=== PATIENT | male | born 1945 ===

== ENCOUNTER 2019-03-07 16:16 | Observation (INO) | payer BC, MEDICARE ==
[2019-03-07 17:07] LABS: Glucose,Whole Blood 169 mg/dL (75-99)
[2019-03-07] MEDS: INSULIN ASPART (NovoLOG) 100 UNIT/ML VIAL SQ SCH ×2 (18:02→21:17)
[2019-03-07] MEDS: GABAPENTIN 100 MG CAP PO SCH ×2 (18:02→22:41)
[2019-03-07 18:24] LABS: Basophils # (A) 0.2 k/uL (0-0.2); Basophils % (A) 2 %; Eosinophils % (A) 0 %; HCT 46.2 % (39.0-53.0); HGB 14.4 gm/dL (13.0-17.5); Lymphocytes # (A) 1.2 k/uL (1.0-4.8); Lymphocytes % (A) 16 %; MCH 30.2 pg (25.0-35.0); MCHC 31.1 g/dL (31.0-37.0); MCV 96.9 fL (80.0-100.0); Monocytes # (A) 0.5 k/uL (0-1.0); Monocytes % (A) 7 %; Neutrophils # (A) 5.5 k/uL (1.3-7.7); Neutrophils % (A) 73 %; Platelet Count 274 k/uL (150-450); RBC 4.76 m/uL (4.30-5.90); RDW 14.4 % (11.5-15.5); WBC 7.5 k/uL (3.8-10.6)
[2019-03-07 18:39] LABS: Albumin 4.4 g/dL (3.5-5.0); Calcium 9.4 mg/dL (8.4-10.2); Total Bilirubin 0.8 mg/dL (0.2-1.3); Total Protein 7.7 g/dL (6.3-8.2)
[2019-03-07 19:24] LABS: Erythrocyte Sedimentation Rate 15 mm/hr (0-15)
[2019-03-07 20:43] LABS: Glucose,Whole Blood 130 mg/dL (75-99)
[2019-03-07] MEDS: AMMONIUM LACTATE 12% LOTION 225 GM BTL TOPICAL SCH (22:05)
[2019-03-07] MEDS: POTASSIUM CHLORIDE ER 20 MEQ TAB.ER PO SCH (22:42)
[2019-03-07] MEDS: HYDROcodone/APAP 7.5-325MG 1 EACH TAB PO SCH (22:42)
[2019-03-07] MEDS: LATANOPROST 0.005% OPHTH DROPS 2.5 ML BTL BOTH EYES SCH (23:19)
[2019-03-07] MEDS: TIMOLOL 0.5% OPHTH DROPS 5 ML BTL BOTH EYES SCH (23:20)
[2019-03-08] MEDS: DORZOLAMIDE HCL 2% DROPS 10 ML BTL BOTH EYES SCH ×4 (00:08→21:06)
[2019-03-08] MEDS: BRIMONIDINE TARTRATE 0.2% DROPS 5 ML BTL BOTH EYES SCH ×4 (00:09→21:05)
[2019-03-08 07:19] LABS: Glucose,Whole Blood 134 mg/dL (75-99)
[2019-03-08] MEDS: INSULIN ASPART (NovoLOG) 100 UNIT/ML VIAL SQ SCH ×4 (08:15→21:11)
[2019-03-08] MEDS: POTASSIUM CHLORIDE ER 20 MEQ TAB.ER PO SCH ×2 (10:14→21:03)
[2019-03-08] MEDS: FUROSEMIDE 20 MG TAB PO SCH ×2 (10:14→17:12)
[2019-03-08] MEDS: ALLOPURINOL 100 MG TAB PO SCH (10:15)
[2019-03-08] MEDS: AMMONIUM LACTATE 12% LOTION 225 GM BTL TOPICAL SCH ×2 (10:23→21:06)
[2019-03-08] MEDS: GABAPENTIN 100 MG CAP PO SCH ×4 (10:23→21:11)
[2019-03-08] MEDS: HYDROcodone/APAP 7.5-325MG 1 EACH TAB PO SCH ×2 (10:24→21:03)
[2019-03-08] MEDS: TIMOLOL 0.5% OPHTH DROPS 5 ML BTL BOTH EYES SCH ×2 (10:25→21:06)
[2019-03-08 12:10] LABS: Glucose,Whole Blood 211 mg/dL (75-99)
--- NOTE | 2019-03-08 14:29 | HP ---
HISTORY AND PHYSICAL A 73-year-old white male admitted to hospital with significant swelling and weeping from yellow exudate of large amount of bilateral lower legs and large amount of cellulitis with congestive heart failure type changes in his legs versus lymphedema. He was admitted with IV Kefzol after failing outpatient treatment with antibiotics and diuretics. There is a history of chronic diastolic CHF, history of cellulitis of the lower legs, lymphedema of the lower legs, gout, glaucoma, osteoarthritis, generalized weakness and debility, walks with a walker, diastolic heart failure. HOME MEDICATIONS: 1. Ophthalmologic drops including timolol 1 drop both eyes b.i.d., latanoprost 1 drop both eyes at night. 2. Potassium 20 mEq b.i.d. 3. [place] 7.5 b.i.d. 4. Neurontin 200 q.i.d. for neuropathy. 5. Lasix 20 mg b.i.d. 6. Trusopt 1 drop both eyes t.i.d. 7. I start him on IV Kefzol in the hospital 1 g q.8 hours. 8. Brimonidine tartrate 1 drop both eyes. 9. Ammonium lactate topically b.i.d. 10.Zyloprim 200 mg daily. 11.Lasix 20 b.i.d. 14 POINT REVIEW OF SYSTEMS: As mentioned above. PHYSICAL EXAMINATION: Temp 97.7, pulse 67-80, respiratory 18-20, blood pressure 137 to 163/70s to 80s, 98% on room air, respiratory rate 18 to 20, pulse 67-84, temp 97.4. CARDIOVASCULAR: S1-S2. LUNGS: Wheezes at the bases. GI: Soft, distended due to obesity. BMI is over 40. PSYCH: Fair mood and affect. OPHTHALMOLOGICAL: Pupils equal, round, reactive. Some from his eyes. EXTREMITIES: Show 3+ pedal edema bilaterally from the knees down to the feet with large amount of yellow exudate of scaling on the anterior tibias bilaterally with significant erythema, redness and swelling and warmth in bilateral legs from the knees down to the feet. ASSESSMENT: 1. Acute on chronic cellulitis of the lower legs, failed outpatient treatment. 2. Lymphedema versus diastolic congestive heart failure. 3. Osteoarthritis, significant nature. 4. Diastolic congestive heart failure. 5. Osteoarthritis, chronic neuropathy. PLAN: Continue with IV cefazolin. Infectious Disease consult, diabetes workup will be continued. Continue on his Lasix he takes for diuresis. Please wait for Infectious Disease consult. Continue with IV cefazolin. MMODL / IJN: [id number] /
[2019-03-08 16:45] LABS: Glucose,Whole Blood 185 mg/dL (75-99)
[2019-03-08 20:51] LABS: Glucose,Whole Blood 183 mg/dL (75-99)
[2019-03-08] MEDS: LATANOPROST 0.005% OPHTH DROPS 2.5 ML BTL BOTH EYES SCH (21:05)
--- NOTE | 2019-03-08 23:47 | P.CONS ---
History of Present Illness - Reason for Consult Consult date: 03/08/19 leg cellulitis Requesting physician: Jeremi Calvert - Chief Complaint leg swelling and redness x few days - History of Present Illness Patient is a 73-year-old male with a past medical he significant for chronic lower extremity swelling in this patient who has been admitted arrived to the hospital from his primary care physician office for evaluation of management of bilateral lower extremity cellulitis patient mentioning he did have a chronic swelling in his leg however seem to have been getting worse for the last few days with more swelling and redness especially to the right leg patient did have some dull aching pain with intensity about 4-5 out of 10 and no radiation patient currently with no open wound or any purulent drainage. Did have some chills but denies high-grade fever with the symptom the patient has been admitted to the hospital he was started on cefazolin infectious disease was consulted for further recommendation about antibiotic therapy Review of Systems Positive point has been mentioned in HPI rest of the systems are negative Past Medical History Past Medical History: Diabetes Mellitus, Eye Disorder Additional Past Medical History / Comment(s): pedal edema, gout, glaucoma, retinal disease, cataracts, neuropathy History of Any Multi-Drug Resistant Organisms: None Reported Additional Past Surgical History / Comment(s): cataract surgery Past Anesthesia/Blood Transfusion Reactions: No Reported Reaction Past Psychological History: No Psychological Hx Reported Smoking Status: Never smoker - Past Family History Father Family Medical History: Cancer Medications and Allergies Home Medications Medication Instructions Recorded Confirmed Type Allopurinol [Zyloprim] 300 mg PO DAILY 03/07/19 03/07/19 History Brimonidine Tartrate/Timolol 1 drop BOTH EYES TID 03/07/19 03/07/19 History [Combigan 0.2%-0.5% Eye Drops] Brinzolamide [Azopt 1% Ophth Susp] 1 drop BOTH EYES BID 03/07/19 03/07/19 Histo ry Furosemide [Lasix] 20 mg PO DAILY 03/07/19 03/07/19 History Furosemide [Lasix] 40 mg PO QAM 03/07/19 03/07/19 History Gabapentin [Neurontin] 300 mg PO QID 03/07/19 03/07/19 History HYDROcodone/APAP 7.5-325MG [[place] 1 tab PO BID 03/07/19 03/07/19 History 7.5-325] INSULIN LISPRO (humaLOG) [humaLOG] 10 units SQ TID 03/07/19 03/07/19 History Latanoprost [Xalatan 0.005%] 1 drop BOTH EYES HS 03/07/19 03/07/19 History Potassium Chloride [Klor-Con 20] 20 meq PO BID 03/07/19 03/07/19 History acetaZOLAMIDE [acetaZOLAMIDE ER] 500 mg PO DAILY 03/07/19 03/07/19 History Allergies Allergy/AdvReac Type Severity Reaction Status Date / Time No Known Allergies Allergy Verified 03/07/19 16:57 Physical Exam Vitals: Vital Signs Temp Pulse Resp BP Pulse Ox 03/08/19 20:50 98.0 F 75 16 161/81 98 03/08/19 13:01 97.6 F 82 16 166/81 98 03/08/19 05:00 97.4 F L 80 20 137/81 98 Intake and Output 03/08/19 03/08/19 03/09/19 14:59 22:59 06:59 Intake Total 540 540 Balance 540 540 Intake: Oral 540 540 Other: # Voids 3 1 GENERAL DESCRIPTION: Elderly male lying in bed, no distress. No tachypnea or accessory muscle of respiration use. HEENT: Shows Pallor , no scleral icterus. Oral mucous membrane is dry. NECK: Trachea central, no thyromegaly. LUNGS: Unlabored breathing. Clear to auscultation anteriorly. No wheeze or crack le. HEART: S1, S2, regular rate and rhythm. ABDOMEN: Soft, no tenderness , guarding or rigidity EXTREMITIES: Diffuse swelling of bilateral lower extremity right leg did have redness warmth no open wound or any drainage. SKIN: No rash, no masses palpable. NEUROLOGICAL: The patient is awake, alert, oriented x3, mood and affect normal. Results CBC & Chem 7: 03/07/19 17:58 03/07/19 17:58 Labs: Abnormal Lab Results - Last 24 Hours (Table) 03/08/19 03/08/19 03/08/19 Range/Units 07:02 11:52 16:40 POC Glucose (mg/dL) 134 H 211 H 185 H (75-99) mg/dL 03/08/19 Range/Units 20:50 POC Glucose (mg/dL) 183 H (75-99) mg/dL Assessment and Plan Assessment: 1-patient with diffuse lower extremity swelling likely from underlying fluid overload in this patient who did have a component of right lower extremity cellulitis with diffuse swelling and redness likely representing streptococcal disease clinically doubt MRSA or gram-negative infection (1) Bilateral lower leg cellulitis Current Visit: Yes Status: Acute Code(s): L03.116 - CELLULITIS OF LEFT LOWER LIMB; L03.115 - CELLULITIS OF RIGHT LOWER LIMB SNOMED Code(s): 718395452 Plan: 1-We will increase the dose of cefazolin to 2 g every 8 hour. 2-Tim wrap to the leg from just above the toe to below the knee we will follow on clinical condition and cultures to further adjust medication if needed Thank you for this consultation we will follow the patient along with you Time with Patient: Greater than 30
[2019-03-09 07:11] LABS: Glucose,Whole Blood 126 mg/dL (75-99)
[2019-03-09] MEDS: INSULIN ASPART (NovoLOG) 100 UNIT/ML VIAL SQ SCH ×4 (07:46→20:35)
[2019-03-09] MEDS: POTASSIUM CHLORIDE ER 20 MEQ TAB.ER PO SCH ×2 (07:59→20:23)
[2019-03-09] MEDS: FUROSEMIDE 20 MG TAB PO SCH ×2 (07:59→16:31)
[2019-03-09] MEDS: AMMONIUM LACTATE 12% LOTION 225 GM BTL TOPICAL SCH ×2 (07:59→20:25)
[2019-03-09] MEDS: DORZOLAMIDE HCL 2% DROPS 10 ML BTL BOTH EYES SCH ×3 (07:59→20:25)
[2019-03-09] MEDS: ALLOPURINOL 100 MG TAB PO SCH (07:59)
[2019-03-09] MEDS: HYDROcodone/APAP 7.5-325MG 1 EACH TAB PO SCH ×2 (07:59→20:23)
[2019-03-09] MEDS: BRIMONIDINE TARTRATE 0.2% DROPS 5 ML BTL BOTH EYES SCH ×3 (08:00→20:24)
[2019-03-09] MEDS: TIMOLOL 0.5% OPHTH DROPS 5 ML BTL BOTH EYES SCH ×2 (08:00→20:24)
[2019-03-09] MEDS: GABAPENTIN 100 MG CAP PO SCH ×4 (08:03→20:24)
[2019-03-09 11:57] LABS: Glucose,Whole Blood 130 mg/dL (75-99)
--- NOTE | 2019-03-09 14:53 | P.PN ---
Subjective Progress Note Date: 03/09/19 this is a 73-year-old gentleman admitted with bilateral lower leg cellulitis,fluid overload and multiple other medical issues. Maintained on IV ceftezolin in addition to Tim wraps of affected extremities.blood sugars controlled. significant clinical improvement.afebrile. good diet intake with no nausea vomiting or diarrhea. Denies chest pain, palpitations or shortness of breath. Objective - Vital Signs Vital signs: Vital Signs Temp 98.3 F 03/09/19 12:58 Pulse 74 03/09/19 12:58 Resp 15 03/09/19 12:58 BP 137/77 03/09/19 12:58 Pulse Ox 98 03/09/19 12:58 Intake & Output 03/08/19 03/09/19 03/09/19 18:59 06:59 18:59 Intake Total 1080 Balance 1080 Intake: Oral 1080 Other: Voiding Method Toilet Toilet # Voids 3 2 2 - Exam PHYSICAL EXAM: VITAL SIGNS: [as above] GENERAL: sitting up at side of bed, no acute distress HEENT: Conjunctivae normal.no scleral icterus, oral mucosa moist NECK: No JVD. No thyroid enlargement. No LNs CARDIOVASCULAR: S1, S2 regular. No murmur RESPIRATION: Breath sounds diminished in the bases. No rhonchi or crackles. Occasional expiratory wheeze ABDOMEN: Soft, nontender. No guarding. no masses palpable. No ascites, No hepatosplenomegaly.Bowel sounds heard. LEGS: bilateral lower extremity Tim wraps clean dry and intact PSYCHIATRY: Alert and oriented X3, mood and affect normal. NERVOUS SYSTEM: Cranial N 2-12 grossly normal. Moves all 4 limbs. Diffuse weakness-uses a rolling walker. Skin: no rash - Labs CBC & Chem 7: 03/07/19 17:58 03/07/19 17:58 Labs: Abnormal Lab Results - Last 24 Hours (Table) 03/08/19 03/08/19 03/09/19 Range/Units 16:40 20:50 07:10 POC Glucose (mg/dL) 185 H 183 H 126 H (75-99) mg/dL 03/09/19 Range/Units 11:55 POC Glucose (mg/dL) 130 H (75-99) mg/dL Assessment and Plan Assessment: bilateral lower leg cellulitis, suspect streptococcal disease lymphedema versus acute diastolic CHF osteoarthritis Chronic neuropathy Plan: Continue on current medication regime ,monitoring and symptomatic treatment. Maintain IV antibiotics and wound care as ordered.discharge planning in progress for tomorrow pending infectious disease clearance with DC recommendations. The impression and plan of care has been dictated as directed. : I performed a history and examination of this patient, discussed the same with the dictator. I agree with the dictator's note ,documented as a scribe. Any additional findings or plans will be noted.
[2019-03-09 16:57] LABS: Glucose,Whole Blood 142 mg/dL (75-99)
[2019-03-09] MEDS: LATANOPROST 0.005% OPHTH DROPS 2.5 ML BTL BOTH EYES SCH (20:24)
[2019-03-09 20:26] LABS: Glucose,Whole Blood 193 mg/dL (75-99)
[2019-03-09 21:47] VITALS: RESP 16
--- NOTE | 2019-03-09 23:08 | PN ---
PROGRESS NOTE DATE OF SERVICE: 03/09/2019. REASON FOR FOLLOWUP: Bilateral lower extremity cellulitis. INTERVAL HISTORY: The patient is currently afebrile. The patient has been breathing comfortably. The patient denies having any chest pain or any cough. Still has swelling in the leg, slightly decreased. No nausea, no vomiting, no abdominal pain or diarrhea. PHYSICAL EXAMINATION: Blood pressure 143/73 with a pulse of 78, temperature 98.8. He is 96% on room air. General description is an elderly male up in the chair in no distress. RESPIRATORY SYSTEM: Unlabored breathing. Clear to auscultation anteriorly. HEART: S1, S2. Regular rate and rhythm. ABDOMEN: Soft. No tenderness. Legs are currently wrapped swelling and redness slightly decreased. LABS: No new labs have been obtained today. DIAGNOSTIC IMPRESSION AND PLAN: Patient with bilateral lower extremity cellulitis, right greater than the left, in this patient who did have diffuse swelling and redness. Will continue the patient on cefazolin for 24 hours and if he continues to improve, to finish therapy with oral Keflex. Tim wrap on the legs to keep the swelling down. MMODL / IJN: [id number] / MTDD
[2019-03-10 05:16] VITALS: BP 122/69; PULSE 63; TEMP 98.2
[2019-03-10] MEDS: HYDROcodone/APAP 7.5-325MG 1 EACH TAB PO SCH (07:00)
[2019-03-10] MEDS: ALLOPURINOL 100 MG TAB PO SCH (07:01)
[2019-03-10] MEDS: POTASSIUM CHLORIDE ER 20 MEQ TAB.ER PO SCH (07:01)
[2019-03-10] MEDS: FUROSEMIDE 20 MG TAB PO SCH (07:01)
[2019-03-10] MEDS: DORZOLAMIDE HCL 2% DROPS 10 ML BTL BOTH EYES SCH (07:02)
[2019-03-10] MEDS: GABAPENTIN 100 MG CAP PO SCH ×2 (07:02→12:09)
[2019-03-10 07:03] LABS: Glucose,Whole Blood 124 mg/dL (75-99)
[2019-03-10] MEDS: AMMONIUM LACTATE 12% LOTION 225 GM BTL TOPICAL SCH (07:03)
[2019-03-10] MEDS: BRIMONIDINE TARTRATE 0.2% DROPS 5 ML BTL BOTH EYES SCH (07:03)
[2019-03-10] MEDS: TIMOLOL 0.5% OPHTH DROPS 5 ML BTL BOTH EYES SCH (07:04)
[2019-03-10] MEDS: INSULIN ASPART (NovoLOG) 100 UNIT/ML VIAL SQ SCH ×2 (07:26→12:09)
[2019-03-10 11:41] LABS: Glucose,Whole Blood 163 mg/dL (75-99)
--- NOTE | 2019-03-10 14:47 | PN ---
PROGRESS NOTE DATE OF SERVICE: 03/10/2019 REASON FOR FOLLOWUP: Bilateral cellulitis. INTERVAL HISTORY: The patient is currently afebrile. The patient is breathing comfortably. Denies any chest pain, cough. No nausea or vomiting. No abdominal pain. Pain to the leg area. PHYSICAL EXAMINATION: Blood pressure 122/69 with a pulse of 63, temperature 98.2. He is 97% on room air. General description is a middle-aged male lying in bed in no distress. RESPIRATORY SYSTEM: Unlabored breathing. Clear to auscultation anteriorly. HEART: S1, S2. Regular rate and rhythm. ABDOMEN: Soft, no tenderness. LABS: No new labs have been obtained today. DIAGNOSTIC IMPRESSION AND PLAN: Patient with bilateral lower extremity cellulitis, right greater than left. The patient had shown clinical improvement on cefazolin. Finish therapy with oral Keflex for about a week. Continue with Tim wrap on the legs to keep the swelling down. Continue supportive care. MMODL / IJN: [id number] / MTDD
--- NOTE | 2019-03-10 16:41 | P.DS ---
Providers Date of admission: 03/07/19 16:23 Expected date of discharge: 03/10/19 Attending physician: Jeremi Calvert Consults: 03/07/19 17:07 Consult Physician Routine Consulting Provider: Sadi Carlisle Consult Reason/Comments: cellulitis Do you want consulting provider notified?: Yes Placement Type Exists?: Yes Primary care physician: Jeremi Calvert Hospital Course: Final Diagnoses: bilateral lower leg cellulitis, suspect streptococcal disease lymphedema versus acute diastolic CHF osteoarthritis Chronic neuropathy Hospital course:this is a 73-year-old gentleman admitted with bilateral lower leg cellulitis,fluid overload and multiple other medical issues. Maintained on IV ceftezolin in addition to Tim wraps of affected extremities.blood sugars controlled. significant clinical improvement.afebrile. good diet intake with no nausea vomiting or diarrhea. Denies chest pain, palpitations or shortness of breath. Significant clinical improvement. Cleared by infectious disease for discharge. Patient is being discharged home in a stable condition with guarded prognosis. EXAM: GENERAL: Alert and oriented 3, no acute distress CARDIOVASCULAR: S1, S2 regular. No murmur RESPIRATION: Breath sounds diminished in the bases. No rhonchi or crackles. ABDOMEN: Soft, nontender. No guarding. no masses palpable. Bowel sounds heard. LEGS: bilateral lower extremity Tim wraps clean dry and intact NERVOUS SYSTEM: Cranial nerves II through XII grossly intact. The impression and plan of care has been dictated as directed. : I performed a history and examination of this patient, discussed the same with the dictator. I agree with the dictator's note ,documented as a scribe. Any additional findings or plans will be noted. Patient Condition at Discharge: Stable Plan - Discharge Summary Discharge Rx Participant: No New Discharge Prescriptions: New Ammonium Lactate Lotion [Lac-Hydrin 12% Lotion] 1 applic TOPICAL BID #0 applic Furosemide [Lasix] 20 mg PO BID@0900,1600 tab Cephalexin [Keflex] 500 mg PO Q8HR #21 cap Continue Brinzolamide [Azopt 1% Ophth Susp] 1 drop BOTH EYES BID Brimonidine Tartrate/Timolol [[place] 0.2%-0.5% Eye Drops] 1 drop BOTH EYES TID Latanoprost [Xalatan 0.005%] 1 drop BOTH EYES HS HYDROcodone/APAP 7.5-325MG [[place] 7.5-325] 1 tab PO BID Potassium Chloride [Klor-Con 20] 20 meq PO BID INSULIN LISPRO (humaLOG) [humaLOG] 10 units SQ TID Gabapentin [Neurontin] 300 mg PO QID Allopurinol [Zyloprim] 300 mg PO DAILY Discontinued Furosemide [Lasix] 40 mg PO QAM acetaZOLAMIDE [acetaZOLAMIDE ER] 500 mg PO DAILY Furosemide [Lasix] 20 mg PO DAILY Discharge Medication List Allopurinol [Zyloprim] 300 mg PO DAILY 03/07/19 [History] Brimonidine Tartrate/Timolol [[place] 0.2%-0.5% Eye Drops] 1 drop BOTH EYES TID 03/07/19 [History] Brinzolamide [Azopt 1% Ophth Susp] 1 drop BOTH EYES BID 03/07/19 [History] Gabapentin [Neurontin] 300 mg PO QID 03/07/19 [History] HYDROcodone/APAP 7.5-325MG [[place] 7.5-325] 1 tab PO BID 03/07/19 [History] INSULIN LISPRO (humaLOG) [humaLOG] 10 units SQ TID 03/07/19 [History] Latanoprost [Xalatan 0.005%] 1 drop BOTH EYES HS 03/07/19 [History] Potassium Chloride [Klor-Con 20] 20 meq PO BID 03/07/19 [History] Ammonium Lactate Lotion [Lac-Hydrin 12% Lotion] 1 applic TOPICAL BID #0 applic 03/09/19 [Rx] Cephalexin [Keflex] 500 mg PO Q8HR #21 cap 03/10/19 [Rx] Furosemide [Lasix] 20 mg PO BID@0900,1600 tab 03/10/19 [Rx] Follow up Appointment(s)/Referral(s): [facility] [NON-STAFF] - ([phone]) Ambulatory/Diagnostic Orders: Complete Blood Count w/diff [LAB.AMB] Time Frame: 3 Days, Location: None Selected Patient Instructions/Handouts: Cellulitis (DC) Activity/Diet/Wound Care/Special Instructions: TIM wrap BL legs daily Discharge Disposition: HOME WITH HOME HEALTH SERVICES
== END 2019-03-10 16:17 | disposition home health service (06) ==
LOC: UNDOADMIN 16:23 → INTOOBSV 16:23 → 6NMEDSUR 16:23 → UNDODISIN 03-10 16:17
PROVIDERS: ADMIT Family Medicine; ATTEND Family Medicine
DX: L03.115 Cellulitis of right lower limb (principal); L03.116 Cellulitis of left lower limb; E87.70 Fluid overload, unspecified; M19.90 Unspecified osteoarthritis, unspecified site; E11.40 Type 2 diabetes mellitus with diabetic neuropathy, unspecified; I50.32 Chronic diastolic (congestive) heart failure; E11.39 Type 2 diabetes mellitus with other diabetic ophthalmic complication; H35.9 Unspecified retinal disorder; H42 Glaucoma in diseases classified elsewhere; Z98.49 Cataract extraction status, unspecified eye; M10.9 Gout, unspecified; H40.9 Unspecified glaucoma; R53.81 Other malaise; Z99.89 Dependence on other enabling machines and devices; Z79.4 Long term (current) use of insulin; Z79.891 Long term (current) use of opiate analgesic; Z79.899 Other long term (current) drug therapy; Z80.9 Family history of malignant neoplasm, unspecified
CPT/HCPCS: 96365; 96366 ×3; 97530; 97535; 97166; 83880; 80053; 85652; 85025; 83036; G0379; G0378 ×4; J0690 ×3